=== PATIENT | male | born 1980 | race Two or more races ===

== ENCOUNTER 2022-11-29 09:59 | Outpatient (CLI) | payer OTHER | END 2022-11-29 10:02 | disposition home or self-care (01) | LOC: NUCLEAR 09:59 | PROVIDERS: ATTEND Internal Medicine | DX: I11.9 Hypertensive heart disease without heart failure (principal); E78.2 Mixed hyperlipidemia; G47.33 Obstructive sleep apnea (adult) (pediatric); J45.901 Unspecified asthma with (acute) exacerbation; E04.0 Nontoxic diffuse goiter; E66.3 Overweight ==

== ENCOUNTER 2022-11-29 10:50 | Outpatient (CLI) | payer OTHER | END 2022-11-29 11:03 | disposition home or self-care (01) | LOC: RAD 10:50 | PROVIDERS: ATTEND Internal Medicine | DX: I11.9 Hypertensive heart disease without heart failure (principal); E78.2 Mixed hyperlipidemia; G47.33 Obstructive sleep apnea (adult) (pediatric); J45.901 Unspecified asthma with (acute) exacerbation; E04.0 Nontoxic diffuse goiter; E66.3 Overweight ==